=== PATIENT | male | born 1955 | race Caucasian/White ===

== ENCOUNTER 2017-04-28 10:09 | Inpatient (IN) | payer OTHER ==
[~2017-04-28] VITALS: Ht 200.7 cm; Wt 136.1 kg
[2017-04-28 10:15] VITALS: BP 126/77
[2017-04-28 10:49] LABS: ABSOLUTE BASOPHILS 0.1 thou/uL (0.0-0.2); ABSOLUTE EOSINOPHILS 0.3 thou/uL (0.0-0.7); ABSOLUTE MONOCYTES 1.2 thou/uL (0.0-1.2); ABSOLUTE NEUTROPHILS 7.9 thou/uL (1.6-8.1); BASOPHILS 0.7 %; HEMATOCRIT 40.6 % (42.0-52.0); HEMOGLOBIN 13.8 gm/dL (14.0-18.0); LYMPHOCYTES 17.3 %; MCH 31.9 pg (26.0-34.0); MCV 93.7 fL (80.0-100.0); MONOCYTES 10.7 %; MPV 7.2 fl. (7.2-11.1); NUCLEATED RBCS 0 /100WBC; PLATELET COUNT* 320 thou/uL (150-400); POLYS 68.3 %; RBC 4.34 mil/uL (4.50-6.00); RDW-CV 13.3 % (10.5-14.5); WBC 11.5 thou/uL (4.0-11.0)
[2017-04-28 10:59] LABS: ANION GAP 9 mmol/L (7-16); BUN 12 mg/dL (7-18); CALCIUM 8.4 mg/dL (8.5-10.1); CHLORIDE 98 mmol/L (98-107); CO2 28 mmol/L (21-32); CREATININE 1.1 mg/dL (0.6-1.3); GLUCOSE 161 mg/dL (70-99); POTASSIUM 3.7 mmol/L (3.5-5.1); SODIUM 135 mmol/L (136-145)
[2017-04-28 11:10] LABS: ALBUMIN 3.1 g/dL (3.4-5.0); ALKALINE PHOSPHATASE 74 U/L (46-116); NT-PRO BRAIN NAT PEPTIDE 23 pg/mL (<300); SGOT 24 U/L (15-37); SGPT 32 U/L (30-65); TOTAL BILIRUBIN 0.7 mg/dL (<0.1-1.0); TOTAL PROTEIN 7.4 g/dL (6.4-8.2); TROPONIN-I LEVEL <0.06 ng/mL (<0.06)
--- NOTE | 2017-04-28 12:03 | NUR ---
JULIET NOTIFIED UPON PT RETURN FROM CT. PT CONNECTED TO MONITOR
[2017-04-28] MEDS ORDERED: TENORMIN25 MG PO (13:36)
[2017-04-28] MEDS ORDERED: AMLODIPINE BESY10 MG PO (13:36)
[2017-04-28] MEDS ORDERED: HYDROCHLOROTHIA25 M2 PO (13:36)
[2017-04-28 14:44] VITALS: BP 131/86
[2017-04-28 14:55] VITALS: BP 137/77
--- NOTE | 2017-04-28 14:55 | NUR ---
ADVISED LALO OF CHANGE TO SEVERE SEPSIS.
--- NOTE | 2017-04-28 14:58 | EKG ---
[place] [address] ELECTROCARDIOGRAM REPORT Name: EVER CREWS Room: [address] ADM IN .R.#: [id number] Admission: 04/28/17 Attend Phys: Chelsea Concepcion Discharge: Date of : 57 Report #: [id number] THIS REPORT FOR: //name// [facility] ED Test Date: 2017-04-28 Test Time: 10:54:17 Pat Name: EVER CREWS Department: Room: [facility] Gender: Trial Justice: Juanis LOVETT : 1955 Requested By: Wendi Ayon Order Number: [id number] MD: Ever Valadez Measurements Intervals [place] Rate: 95 P: 48 NM: 159 QRS: 18 QRSD: 100 T: 43 QT: 359 QTc: 452 Interpretive Statements Sinus rhythm Probable left atrial enlargement Minimal ST elevation, anterior leads No previous ECG available for comparison Electronically Signed On 04-28-2017 14:58:22 ANIMAL KEEPER by Ever Valadez [email or web address] <ELECTRONICALLY SIGNED> By: Ever Valadez MD, MERGED WITH [facility] 04/28/17 1458 1054 1054 Ever Valadez MD, MERGED WITH [facility] /EPI
--- NOTE | 2017-04-28 18:57 | NUR ---
ASSUMED CARE OF PT AT 1700 FROM TANIA DESAI. THIS RN AGREES WITH CHARTING DONE BY TANIA DESAI. PT A&O X4. VSS. O2 SAT >90% ON ROOM AIR. IV PATENT AND INFUSING FLUIDS. BOOK BINDER IN PLACE TRACING SR TO ST. PT DENIES PAIN OR DISCOMFORT. PT EATING AND DRINKING WITHOUT ISSUE. PT UP AD STEPHANIE TO THE BATHROOM, LOW FALL RISK. SPOUSE AT BEDSIDE. PT INFORMED OF PLAN OF CARE, PT COMMUNICATES UNDERSTANDING. PT TO HAVE BRONCHOSCOPY TOMORROW. NPO AFTER MIDNIGHT. PT BECAME SOA AFTER CHANGING INTO PJ PANTS, SATS >90%. LOW FALL RISK PRECAUTIONS IN PLACE. HOURLY ROUNDING PERFORMED. CALL LIGHT IS WITHIN REACH. WILL CONTINUE TO MONITOR FOR DURATION OF SHIFT.
[2017-04-28 20:00] VITALS: BP 123/79
[2017-04-29] VITALS: BP 122/72
--- NOTE | 2017-04-29 02:33 | NUR ---
ASSUMED CARE OF PT AT 1900. PT IS ALERT AND ORIENTED. VSS. NO COMPLAINTS OF PAIN. NO COMPLAINTS OF SOA. PT IS UP AD STEPHANIE. GAIT IS STEADY. PT IS IN SINUS RYTHM ON THE TELEMETRY. PT IS RESTING COMFORTABLY IN BED. RESPIRATIONS ARE EVEN AND NONLABORED. WILL CONTINUE TO MONITOR PT.
[2017-04-29 04:00] VITALS: BP 101/46
--- NOTE | 2017-04-29 05:10 | NUR ---
PT IS 89% ON ROOM AIR. PT REFUSES TO WEAR OXYGEN. ADVERS AFFECTS OF NOT WEARING O2 WAS EXPLAINED TO THE PT. PT STILL REFUSES TO WEAR O2.
[2017-04-29 08:30] VITALS: BP 136/77
--- NOTE | 2017-04-29 11:15 | NUR ---
CM ASSESSMENT: Pt is A&O. Resides at home with his . Independent with ADLs, continues to work outside of the home. No DME. No hx of HH or SNF. Supportive family that is involved in POC. Admitted for PNA, lung mass, pulm consulted. Goal is to return home once medically stable. Following for dc needs.
[2017-04-29 11:51] VITALS: BP 144/92
[2017-04-29 15:46] VITALS: BP 135/85
--- NOTE | 2017-04-29 17:18 | 2DMMODE ---
[place] [address] 2 D/M-MODE ECHOCARDIOGRAM Name: EVER CREWS Room: [address] IN [facility]#: [id number] Admission: 04/28/17 Attend Phys: Rosemarie Hernandez Discharge: Date of : 57 Date of Service: 04/29/17 1717 Report #: [id number] THIS REPORT FOR: //name// APPROVED REPORT Study performed: 04/29/2017 14:16:38 EXAM: Comprehensive 2D, Doppler, and color-flow Echocardiogram Patient Location: In-Patient Room #: [facility] Status: routine BSA: 2.58 HR: 98 bpm BP: 144/92 mmHg Rhythm: NSR Other Information Study Quality: Good Indications Dyspnea 2D Dimensions LVEF(%): 84.38 (>50%) IVSd: 17.80 (7-11mm) LVOT Diam: 23.19 (18-24mm) LVDd: 44.47 mm PWd: 13.22 (7-11mm) Ascending Ao: 37.57 (22-36mm) LVDs: 20.79 (25-40mm) Aortic Root: 36.09 mm Cervantes's LVEF: 84.38 % Volumes Left Atrial Volume (Systole) LA ESV Index: 23.70 mL/m2 Aortic Valve AoV Peak Jeff.: 1.73 m/s AO Peak Gr.: 11.96 mmHg LVOT Max P.73 mmHg AO Mean Gr.: 6.23 mmHg LVOT Mean P.38 mmHg LVOT Max V: 1.39 m/s AO V2 VTI: 29.31 cm LVOT Mean V: 0.98 m/s AYDEE (VTI): 3.70 cm2 LVOT V1 VTI: 25.67 cm Mitral Valve E/A Ratio: 1.09 [place] [address] 2 D/M-MODE ECHOCARDIOGRAM Name: EVER CREWS Room: [address] IN .R.#: [id number] Admission: 04/28/17 Attend Phys: Rosemarie Hernandez Discharge: Date of : 57 Date of Service: 04/29/17 1717 Report #: [id number] MV Decel. Time: 256.92 ms MV E Max Jeff.: 0.71 m/s MV PHT: 74.51 ms MVA (PHT): 2.95 cm2 TDI E/Lateral E': 5.92 E/Medial E': 6.45 Medial E' Jeff.: 0.11 m/s Lateral E' Jeff.: 0.12 m/s Pulmonary Valve PV Peak Jeff.: 1.11 m/s PV Peak Gr.: 4.95 mmHg Left Ventricle The left ventricle is normal size. There is normal LV segmental wall motion. Mild concentric left ventricular hypertrophy. Left ventricular systolic function is normal. The left ventricular ejection fraction is within the normal range. LVEF is 60-65%. Grade I - abnormal relaxation pattern. Right Ventricle The right ventricle is normal size. The right ventricular systolic function is normal. Atria Left atrium is mildly dilated. The right atrium size is normal. Aortic Valve The aortic valve is normal in structure. No aortic regurgitation is present. There is no aortic valvular stenosis. Mitral Valve The mitral valve is normal in structure. There is no mitral valve regurgitation noted. No evidence of mitral valve stenosis. Tricuspid Valve The tricuspid valve is normal in structure. Unable to assess PA pressure. Trace tricuspid regurgitation. Pulmonic Valve The pulmonary valve is normal in structure. There is no pulmonic valvular regurgitation. Great Vessels The aortic root is normal in size. IVC [place] [address] 2 D/M-MODE ECHOCARDIOGRAM Name: EVER CREWS Room: [address] IN M.R.#: [id number] Admission: 04/28/17 Attend Phys: Rosemarie Hernandez Discharge: Date of : 57 Date of Service: 04/29/17 1717 Report #: [id number] collapses with >50% inspiration Pericardium There is no pericardial effusion. <Conclusion> LVEF is 60-65%. Mild concentric left ventricular hypertrophy. There is normal LV segmental wall motion. There is no aortic valvular stenosis. No aortic regurgitation is present. No aortic regurgitation is present. Grade I - abnormal relaxation Left atrium is mildly dilated. <ELECTRONICALLY SIGNED> By: Gaurang Castrejon MD, FACC 04/29/17 171 16 16 Gaurang Castrejon MD, FACC /INF
[2017-04-29] MEDS ORDERED: ATENOLOL 25 MG25 M1 PO (18:04)
[2017-04-29] MEDS ORDERED: AMLODIPINE BESY10 MG PO (18:05)
[2017-04-29] MEDS ORDERED: HYDROCHLOROTHIA25 M2 PO (18:05)
--- NOTE | 2017-04-29 18:13 | NUR ---
ASSUMED PT CARE AT 0700 PT IS ALERT AND ORIENTED X 4 PT IS NOT A FALL RISK PT DENIES PAIN OR SOA ON RA, PT WAS NPO THIS AM FOR BRONCHOSCOPY PULMONOLGY SAW PT WANTS TO RESCHEDULE BRONCH FOR TUESDAY PT IS UPSET WANTS TO LEAVE AMA TALKED WITH PULMONOLGY WHO WAMTS PT TO STAY FOR STEROIDS AND ANTIBIOTICS MAY DISCHARGE PT TOMORROW AND HAVE PT COME BACK FOR BRONCH PT AGREED TO STAY TILL TOMORROW ORDERED PT A DIET, PT THIS EVENING BROUGHT PT BLOOD PRESSURE MEDS PT IS ADAMENT ON TAKING THIS NURSE TALKED WITH PHYSICIAN WHO ORDERED MEDS AT HALF DOSE SINCE PT BLOOD PRESSURE IS STABLE, WILL CONTINUE TO MONITOR
[2017-04-29 20:15] VITALS: BP 128/72
[2017-04-30 00:32] VITALS: BP 129/78
[2017-04-30 04:07] VITALS: BP 126/80
--- NOTE | 2017-04-30 04:59 | NUR ---
ASSUMED CARE AROUND 1930. PT A/OX4 AND PLEASANT. PT APPEARED SOMEWHAT DEPRESSED THIS SHIFT WHEN AWAKE. TELE MONITOR TRACING SR. ON ROOM AIR. AROUND 2400, PT SITTING UP IN BED, DIAPHORETIC. O2 SAT 94% ON RA AT THAT TIME AND AFEBRILE. VSS. IV SALINE LOCKED. UP AD STEPHANIE AND AMBULATING IN NUNEZ AT TIMES. SEE CHARTING. CALL LIGHT IN REACH, WILL CONTINUE WITH PLAN OF CARE.
[2017-04-30 05:59] LABS: HEMATOCRIT 40.8 % (42.0-52.0); HEMOGLOBIN 14.2 gm/dL (14.0-18.0); MCH 32.8 pg (26.0-34.0); MCHC 34.9 g/dL (28.0-37.0); MCV 93.8 fL (80.0-100.0); MPV 7.5 fl. (7.2-11.1); RBC 4.34 mil/uL (4.50-6.00); RDW-CV 13.6 % (10.5-14.5); WBC 9.5 thou/uL (4.0-11.0)
[2017-04-30 06:33] LABS: ALBUMIN 3.1 g/dL (3.4-5.0); CALCIUM 9.2 mg/dL (8.5-10.1); CREATININE 0.9 mg/dL (0.6-1.3); MAGNESIUM 2.5 mg/dL (1.8-2.4); POTASSIUM 4.4 mmol/L (3.5-5.1); TOTAL BILIRUBIN 0.4 mg/dL (<0.1-1.0); TOTAL PROTEIN 7.8 g/dL (6.4-8.2)
--- NOTE | 2017-04-30 07:34 | CON ---
[address] [address] CONSULTATION Name: EVER CREWS Room: [address] ADM IN .R.#: [id number] Admission: 04/28/17 Attend Phys: Chelsea Concepcion Discharge: Date of : 57 Report #: [id number] THIS REPORT FOR: //name// CC: [facility] physician/PCP Rosemarie Hernandez DATE OF SERVICE: 04/29/2017 ATTENDING PHYSICIAN: Rosemarie Hernandez MD LOCATION: The patient is located in room 206. INDICATION FOR CONSULTATION: Left lung mass, infiltrate. PRIMARY CARE PHYSICIAN: None. PRESENT CLINICAL SUMMARY: The patient is a 62-year-old male, current smoker with mild to moderate COPD, presented with cough and congestion. It appears he was diagnosed with pneumonia about a week ago, maybe at an urgent care center, was treated with some antibiotics but had a followup chest x-ray, it showed a left lower lobe mass. The patient came into the hospital yesterday through the Emergency Room and then had a CT scan showing a 2-3 cm left lower lobe and left hilar mass and some mediastinal adenopathy, some AP window adenopathy. He has had increasing cough for the last 2-3 weeks. He denies any hemoptysis. He states he quit smoking about 2-3 weeks ago. He denies any weight loss, fever, chills or sweats. He has had some back pain and some chest pain with his cough. He has not had any prior x-rays. 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 I think he moved here for a job situation. He has not had any previous lung problems before that he is aware of. He has had a good exercise tolerance, etc. PAST MEDICAL HISTORY: Includes history of lung mass and recent pneumonia. ALLERGIES AND INTOLERANCE: HE HAS ALLERGIES OR INTOLERANCE TO CODEINE. PAST SURGICAL HISTORY: Includes sinus surgery for polyps, knee surgery for osteoarthritis and hypertension. OUTPATIENT MEDICATIONS: Include hydrochlorothiazide 25 mg daily, amlodipine 10 mg daily, atenolol was 25 mg daily. FAMILY HISTORY: He had a brother with cancer, type unknown. SOCIAL HISTORY: I believe he lives by himself. He is a current everyday smoker who quit 2 weeks ago, used to smoke about a half to one pack a day [place] [address] CONSULTATION Name: CREWSEVER Rayray Room: [address]#: [id number] Admission: 04/28/17 Attend Phys: Chelsea Concepcion Discharge: Date of : 57 Report #: [id number] a 30-40 pack year history of smoking. 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 Has some social alcohol use. Denies any asbestos exposure. He states his father was a amanda and his father may have had some mild asbestos exposure when the patient was young boy. REVIEW OF SYSTEMS: A 14-point review of systems otherwise was reviewed and negative except for pertinent positives noted in HPI. PHYSICAL EXAMINATION: GENERAL: Cooperative, 62-year-old male in no acute distress. VITAL SIGNS: Blood pressure is 136/77, his heart rate is 96, respirations were 16 and his temperature is 36.4 degrees, room air O2 saturation was 96%. He is 6 feet 3 inches tall, weight is 122 kilograms or 255 pounds, BMI is 30. HEENT: Pharynx is clear. NECK: Supple without nodes. No increase in jugular venous pressure. There is no cervical or supraclavicular adenopathy. CHEST: Shows inspiratory and expiratory wheezes in the left lung. No inspiratory stridor is noted. Right lung is fairly clear except for some diminished breath sounds. Mildly prolonged expiratory phase is noted on the right. CARDIOVASCULAR: Shows regular rate and rhythm without murmur, gallop or rub. Heart rate is 96-100. No S3 is noted. ABDOMEN: Soft without masses or megaly. EXTREMITIES: Without calf tenderness. No cyanosis, clubbing or edema. SKIN: Dry and intact. NEUROLOGIC: Grossly intact and nonfocal. LABORATORY DATA: Hemoglobin is 14; white count 11,500; normal differential; platelets 320,000. Chemistry shows sodium 135, potassium is 3.7, chloride is 98, BUN is 28, anion gap is 9, BUN is 12, creatinine is 1.1 and glucose is slightly elevated at 161. Lactic acid, they had one level of 3 and another repeat of 2, which was within normal limits. Calcium was 8.4, which was within normal limits. Albumin is 3.1. CT of the chest, which I reviewed, shows a 3 cm left lower lobe mass. He has a 2 cm left AP window adenopathy noted. Mild COPD and hyperinflation is noted. It appears he has a postobstructive left lower lobe infiltrate and I think there is narrowing of the left lower lobe bronchi and obstruction of the left lower lobe bronchi. I do not see that much involved as far as the right being obstructed or narrowed bronchus on the right. There is also dense consolidation in the left lower lobe. Again, the right shows relatively clear. IMPRESSION: 1. Left lung mass, most likely left lower lobe mass with postobstructive pneumonia, appears to be at least stage 3A if this is a malignant process. 2. Chronic obstructive pulmonary disease. 3. [place] [address] CONSULTATION Name: MARSEVER Rayray Room: [address] IN ..#: [id number] Admission: 04/28/17 Attend Phys: Chelsea Concepcion Discharge: Date of : 57 Report #: [id number] 4. Hypertension. PLAN: Again explained to the patient. We did not have our nurse therapist here available today to do bronchoscopies. It is a Tuesday. We will try and set him up for Tuesday. Possibly, we can do him as an outpatient if he gets discharged. I would like him to stay away from cigarettes, be on antibiotics and also be on oral bronchodilators such as a prednisone taper as an outpatient. The nurse called me back a few minutes after I left the room, said he was somewhat frustrated and he may leave AMA. The nurse was going to again talk to the patient and try and keep him in-house as long as we can. I think he get benefited for some steroids and for some IV antibiotics for postobstructive pneumonia and see if we can get this to clear. He did understand from me that this lung mass could be a lung tumor and I was very clear to him that this could be a lung cancer that would end his life. We have already called outpatient surgery in the infusion room and set him up for a Tuesday bronchoscopy at 11:00 a.m. on 05/02/2017. I unfortunately should be off on Tuesday and then Dr. Melara, my partner, be the one doing the bronchoscopy. I also let the patient know that also. He definitely needs followup for this left lower lobe mass lesion and it will only get worse with time if he ignores it and he is aware of this. Hopefully, get a tissue diagnosis and then proceed from there as to the further workup. If this would happen to be nondiagnostic, then a possibly CT-guided needle biopsy of the left lower lobe lesion might be considered by Interventional Radiology if they could find a solid mass to biopsy. Certainly, will need a followup CT scan in about 6 or 8 weeks to see what the progress is. Thanks again for allowing us to participate in this man's care. <ELECTRONICALLY SIGNED> By: Chema Willett MD 04/30/17 0734 1125 [id number] Willett MD /nt
[2017-04-30 08:00] VITALS: BP 135/83
--- NOTE | 2017-04-30 10:50 | NUR ---
ASSUMED PT CARE AT 0700 PT IS ALERT AND ORIENTED X 4 PT DENIES PAIN OR SOA PT IS ON RA, PT IS UP AD STEPHANIE PT IS NOT A FALL RISK PULMONOLGY SAW PT AND CLEARED PT TO GO HOME PULMONOLOGY WOULD LIKE PT TO STAY TILL TUESDAY BUT STATED PT COULD LEAVE TODAY PT STATES HE WILL LEAVE NO MATTER WHAT TODAY TALKED WITH DR ALEJANDRO WHO ORDERED A 6 MINUTE WALK WITH RESPIRATORY BEFORE DISCHARGE PT HAS BEEN UP WALKING WITHOUT ISSUE, PT GOT DOSES OF BLOOD PRESSURE MEDS, WILL CONTINUE TO MONITOR
[2017-04-30 12:11] VITALS: BP 142/86
[2017-04-30 15:07] LABS: GLYCOHEMOGLOBIN (HGB A1C) 6.6 % (4.8-5.6)
[2017-04-30 15:38] VITALS: BP 132/72
[2017-04-30 21:04] VITALS: BP 135/74
[2017-05-01] VITALS (7 sets, daily range): BP systolic 105–155; BP diastolic 57–83
--- NOTE | 2017-05-01 05:22 | NUR ---
ASSUMED CARE AROUND 1930. PT A/OX4, RESTED SOME TONIGHT. TELE MONITOR TRACING SR. VSS, AFEBRILE. SOME DIAPHORESIS NOTED THIS AM, BUT PT DID NOT HAVE ANY SOA OR REPORT ANY PAIN THIS SHIFT. ON ROOM AIR. IV SALINE LOCKED. UP AD STEPHANIE, AMBULATING IN NUNEZ AT TIMES. PT HAS A GOOD SENSE OF HUMOR. NO CONCERNS VOICED. SEE CHARTING. CALL LIGHT IN REACH, WILL CONTINUE WITH PLAN OF CARE.
--- NOTE | 2017-05-01 15:40 | NUR ---
ASSUMED PT CARE AT 0700 PT IS ALERT AND ORIENTED X 4 PT DENIES PAIN OR SOA, PT IS SR ON THE MONITOR. PT IS NOT A FALL RISK, PT HAD QUESTIONS ABOUT BRONCHOSCOPY SCHEDULED TOMORROW CALLED PULMONOLOGY AND EDUCATED PT ON WHAT FLOORWORKER DISTRIBUTOR EXPLAINED PT STATES UNDERSTANDING, PT WILL BE NPO AT MIDNIGHT, PT IS UP AD STEPHANIE, WILL CONTINUE TO MONIOTR
--- NOTE | 2017-05-01 20:00 | NUR ---
RECEIVED REPORT AND ASSUMED CARE OF PT, ASSESSMENT COMPLETED. SITTING UPON SIDE OF BED WATCHING TV. NO SOB NOTED AT REST. TELEMETRY ON SHOWING SR. NO COMPLAINTS VOICED. WILL CONT TO MONITOR AND ASSIST NEEDED.
[2017-05-02 04:19] VITALS: BP 128/79
[2017-05-02 05:34] LABS: PROTIME 10.2 Seconds (9.20-11.50)
--- NOTE | 2017-05-02 06:57 | NUR ---
SLEPT WELL TONIGHT. NPO [place]CE [place] FOR [facility] THIS AM. NO CHANGE IN ASSESSMENT. ADVANCING TOWARDS GOALS. HOURLY ROUNDING OBSERVED.
[2017-05-02 09:00] VITALS: BP 112/61
--- NOTE | 2017-05-02 14:23 | NUR ---
ASSUMED PT CARE AT 0700 PT IS ALERT AND ORIENTED X 4 PT IS NOT A FALL RISK, PT DENIES PAIN OR SOA, PT IS NPO FOR BRONCH, PT WENT FOR BROCH AROUND 1100 CAME BACK AROUN 1300 PT IS ABLE TO RESUME DIET BIOPSIES WERE TAKEN TALKED WITH DR SALDANA WHO STATED PT WAS ABLE TO DISCHARGE TO FOLLOW UP WITH DR DAVIS AND TO CALL TUESDAY FO RESULTS, PT IS SR ON THE MONITOR CALLED DR SAINZ FOR ORDERS FOR DISCHARGE AWAITING ORDERS, WILL CONTINUE TO MONITOR
[2017-05-02] MEDS ORDERED: PREDNISONE 10 M10 MG PO (15:02)
[2017-05-02] MEDS ORDERED: AUGMENTIN 500-1 EACH PO (15:03)
[2017-05-02 16:09] VITALS: BP 112/61
--- NOTE | 2017-05-03 07:58 | PROC ---
[address] [address] PROCEDURE REPORT Name: EVER CREWS Room: [address] IN M.R.#: [id number] Admission: 04/28/17 Attend Phys: Chelsea Concepcion Discharge: 05/02/17 Date of : 57 Report #: [id number] THIS REPORT FOR: //name// CC: [facility] physician/PCP Rosemarie Hernandez PROCEDURE: Flexible fiberoptic bronchoscopy examination. INDICATION: Left lower lobe mass. COMPLICATIONS: Excessive coughing. SAMPLES OBTAINED: 1. Left lower lobe bronchial biopsy x 2. 2. Bronchial washing left lower lobe x 1. FINDINGS: 1. Vocal cords are normal and approximated with vocalization. 2. Length of trachea normal. 3. The right tracheobronchial tree demonstrated mild amount of secretions. There were no endobronchial lesions. All segments were patent. 4. Left mainstem was normal. Left upper lobe revealed patency of the bronchopulmonary segments. 5. Reveals an endobronchial mass within the left lower lobe, what appears to be the medial segment. Moderate amount of secretions. DISCUSSION AND DESCRIPTION OF PROCEDURE: The patient is a 62-year-old male with chronic obstructive airways disease. He presented to the hospital, underwent evaluation, and was found to have an abnormal CT of the chest. Bronchoscopy examination was recommended. The patient agreed, the procedure was described to the patient and he consented. The patient was kept n.p.o. and this was verified. He was taken to the bronchoscopy suite. At this point, he was treated with aerosolized Xylocaine, his nasal passages were also anesthetized. Once this was accomplished, procedure was performed, but not prior to the patient receiving 2.5 mg of Versed IV, 50 mcg of fentanyl IV. Bronchoscope was inserted into the left nostril and directed transnasally. The vocal cords were identified. Aliquots of Xylocaine were administered, trickled into the proximal trachea. Bronchoscope was then advanced past the vocal cords into the proximal trachea and advanced down to the level of the darren. The darren was sharp. The above findings and subsequent samples were obtained. The patient had excessive amount of coughing and as a result the procedure was terminated at the point where we were at least able [place] [address] PROCEDURE REPORT Name: EVER CREWS Room: [address]#: [id number] Admission: 04/28/17 Attend Phys: Chelsea Concepcion Discharge: 05/02/17 Date of : 57 Report #: [id number] washing and a bronchial biopsy of the endobronchial lesion. We will submit these samples and anticipate a diagnosis of the above. <ELECTRONICALLY SIGNED> By: Chema Willett MD 05/03/17 0758 1148 [id number] Melara MD /myriam
--- NOTE | 2017-05-04 11:10 | CNG ---
[address] [address] CYTO-NONGYN REPORT PROCEDURE Name: EVER CREWS Room: [address] IN ..#: [id number] Admission: 04/28/17 Date of : 57 Discharge: 05/02/17 Report #: [id number] Path Case #: [id number] CYTOPATHOLOGY REPORT COLLECTION DATE: 04/28/2017 RECEIVED DATE: 05/02/2017 SUBMITTING PHYS: Dr. Rosemarie Hernandez OTHER PHYS: Dr. Daniel Melara CLINICAL HISTORY: Pneumonia, Lung mass. See also [id number]. SPECIMEN(S) RECEIVED: A.Bronchoalveolar lavage, LLL * * * * * * * * * * * * FINAL DIAGNOSIS: Bronchoalveolar lavage, LLL: - Paucicellular specimen with rare atypical cells and few bronchial epithelial cells, squamous cells, alveolar macrophages, inflammatory cells, and blood. 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 (NUNO:mgr; 05/04/2017) PATHOLOGIST: Ricky Toussaint M.D. REPORT ELECTRONICALLY SIGNED BY: Ricky Toussaint M.D. DATE/TIME: 05/04/2017 11:09 * * * * * * * * * * * * GROSS PATHOLOGY: Bronchoalveolar lavage, LLL: The specimen is submitted unfixed, labeled "Ever Crews". Received by the Cytology Department is five mL of cloudy red fluid. One ThinPrep slide was prepared. (mm 2.) GENERAL DUTY NURSE(S): BRENNAN Lehman(ASCP) INITIAL CPT CODE(S): A; 06521 Professional services [place] [address] Technical services performed by [facility] at [address] [place] [address], [address], [place] [address]. [place] [address] CYTO-NONGYN REPORT PROCEDURE Name: EVER CREWS Room: [address] IN ..#: [id number] Admission: 04/28/17 Date of : 57 Discharge: 05/02/17 Report #: [id number] Path Case #: [id number] [facility] [address] [place] [address], [address] [place] [address] PHONE: [phone] DIRECTOR: Howard Peralta M.D. * * * END OF REPORT * * *
--- NOTE | 2017-05-04 11:12 | S ---
[facility] [address] [place] [address] SURGICAL PATH RPT PROCEDURE Name: EVER CREWS Room: [address] IN M.R.#: [id number] Admission: 04/28/17 Date of : 57 Discharge: 05/02/17 Report #: [id number] Path Case #: [id number] PATHOLOGY REPORT COLLECTION DATE: 05/02/2017 RECEIVED DATE: 05/02/2017 SUBMITTING PHYS: Dr. Daniel Melara OTHER PHYS: Dr. Rosemarie Freire SPECIMEN(S) RECEIVED: A.LLL * * * * * * * * * * * * FINAL DIAGNOSIS: LLL: - SQUAMOUS CELL CARCINOMA, [id number]-DIFFERENTIATED. - See comment. COMMENT: The biopsy shows squamous cell carcinoma involving bronchial mucosa with prominent tumor necrosis also noted. There is no gland formation or mica keratinization. Properly-controlled immunohistochemical stain performed on A1 highlight the malignant cells as follows supporting the diagnosis. P40: positive TTF-1: negative Reviewed with Dr. Jeffries who agrees with the diagnosis. Dr. Melara notified of preliminary findings at approximately 10:05 on 05/03/2017. (NUNO:mml/pit; 05/03/2017) PATHOLOGIST: Ricky Toussaint M.D. REPORT ELECTRONICALLY SIGNED BY: Ricky Toussaint M.D. DATE/TIME: 05/04/2017 11:12 * * * * * * * * * * * * GROSS PATHOLOGY: The specimen is received in formalin, labeled "Ever Rashid", are several sheffield-conner soft tissue admixed with hemorrhagic material the aggregate measures 0.3 x 0.1 x 0.1 cm, entirely submitted in A1. (SWS; 05/02/2017) CLINICAL HISTORY: [place] [address] SURGICAL PATH RPT PROCEDURE Name: EVER CREWS Room: [address] IN [facility].#: [id number] Admission: 04/28/17 Date of : 57 Discharge: 05/02/17 Report #: [id number] Path Case #: [id number] INITIAL CPT CODE(S): A; 86250, 75651, 95879 Professional services performed [place] [place] [address] Technical services performed by [facility] at [address] [place] [address], [facility] [address] [place] [address]. [facility] [address] [place] [address] PHONE: [phone] DIRECTOR: Howard Peralta M.D. * * * END OF REPORT * * *
== END 2017-05-02 17:04 | disposition home or self-care (01) | DRG 853 ==
LOC: M.ERS 10:09 → M.TBA-ER 12:51 → M.2W 12:51
PROVIDERS: Family Medicine; Internal Medicine; Nurse Practitioner Family; ADMIT Internal Medicine
PROC: 0B9J8ZX Drainage of Left Lower Lung Lobe, Via Natural or Artificial Opening Endoscopic, Diagnostic (ICD-10-PCS; principal; 2017-05-02)
DX: A41.9 Sepsis, unspecified organism (principal); J15.6 Pneumonia due to other Gram-negative bacteria; J96.01 Acute respiratory failure with hypoxia; J44.0 Chronic obstructive pulmonary disease with (acute) lower respiratory infection; J44.1 Chronic obstructive pulmonary disease with (acute) exacerbation; I10 Essential (primary) hypertension; F17.210 Nicotine dependence, cigarettes, uncomplicated; E66.01 Morbid (severe) obesity due to excess calories; R59.9 Enlarged lymph nodes, unspecified; R73.9 Hyperglycemia, unspecified; Z88.5 Allergy status to narcotic agent; Z80.9 Family history of malignant neoplasm, unspecified; Z68.33 Body mass index [BMI] 33.0-33.9, adult